=== PATIENT | female | born 1955 | race Caucasian/White ===

== ENCOUNTER 2021-10-06 12:09 | Inpatient (IN) | payer MEDICAID ==
[~2021-10-06] VITALS: Ht 149.9 cm; Wt 56.2 kg
[2021-10-06 14:19] LABS: BASOPHILS % 0.4 % (0.0-2.0); EOSINOPHILS % 0.9 % (0.0-5.0); HEMATOCRIT. 37.3 % (36.0-48.0); HEMOGLOBIN. 12.6 g/dL (12.0-16.0); LYMPHOCYTES % 12.4 % (20.0-50.0); MEAN CORPUSCULAR HEMOGLOBIN 30.5 pg (28.0-32.0); MEAN CORPUSCULAR VOLUME 90.3 fL (81.0-99.0); MEAN PLATELET VOLUME 7.7 fl (7.4-10.4); MONOCYTES % 10.6 % (2.0-8.0); NEUTROPHILS % 75.7 % (40.0-76.0); PLATELET 198 x1000/uL (130-400); RED BLOOD CELL COUNT 4.13 mill/uL (4.2-5.4); RED CELL DISTRIBUTION WIDTH 14.2 % (11.6-14.6)
[2021-10-06 14:27] LABS: CHLORIDE 103 mEq/L (98-107)
[2021-10-06 14:35] LABS: CLARITY URINE CLEAR (CLEAR); COLOR URINE DARK YELLOW (YELLOW); KETONES URINE 1+ (NEGATIVE); LEUKOCYTE ESTERASE URINE 1+ (NEGATIVE); NITRITE URINE NEGATIVE (NEGATIVE); OCCULT BLOOD URINE TRACE (NEGATIVE); PH URINE 5.5 (4.5-8.0); PROTEIN URINE 1+ (NEGATIVE); SPECIFIC GRAVITY URINE 1.019 (1.005-1.030); UROBILINOGEN URINE 0.2 E.U./dL (0.2-1.0)
[2021-10-06] MEDS ORDERED: IOHEXOL-300 100 ML BOTTLE ONE (15:52)
[2021-10-06] MEDS ORDERED: PANTOPRAZOLE SODIUM 40 MG/VIAL IV STA (16:05)
[2021-10-06] MEDS ORDERED: METRONIDAZOLE 500 MG PREMIX 100 ML IV ONE (16:45)
[2021-10-06] MEDS ORDERED: CEFTRIAXONE 1 G PREMIX 50 ML IV ONE (16:45)
[2021-10-06] MEDS ORDERED: SODIUM CHLORIDE 0.9% 1,000 ML IV ONE (16:45)
[2021-10-06] MEDS ORDERED: ACETAMINOPHEN 325MG TABLET PO ONE (17:00)
[2021-10-06] MEDS ORDERED: CLONIDINE 0.1MG TABLET PO PRN (17:45)
[2021-10-06] MEDS ORDERED: ONDANSETRON HCL 4MG/2ML INJ IV PRN (17:45)
[2021-10-06] MEDS ORDERED: ACETAMINOPHEN 325MG TABLET PO PRN (17:45)
[2021-10-06] MEDS ORDERED: MORPHINE SULFATE 2 MG/ML CPJ (NOT FOR IM USE) IV PRN (17:45)
[2021-10-06] MEDS ORDERED: HYDROCODONE/ACETAMINOPHEN 5/325MG TABLET PO PRN (17:45)
[2021-10-06] MEDS ORDERED: GUAIFENESIN 200MG/10ML SUGAR FREE UDC PO PRN (17:45)
[2021-10-06] MEDS ORDERED: NALOXONE HCL 0.4MG/ML VIAL IV PRN (18:00)
[2021-10-06] MEDS: THIAMINE HCL 100MG TABLET PO SCH (22:15)
[2021-10-07 04:00] VITALS: BP 133/57
[2021-10-07] MEDS ORDERED: GLIP5TAB12 MT (07:40)
[2021-10-07] MEDS ORDERED: METF-416 MT (07:40)
[2021-10-07 07:41] VITALS: BP 133/57
[2021-10-07 08:00] VITALS: BP 118/56
[2021-10-07 08:01] LABS: *AMPHETAMINES SCREEN URINE NEGATIVE (NEGATIVE); *BARBITURATES SCREEN URINE NEGATIVE (NEGATIVE); *BENZODIAZEPINES SCREEN URINE NEGATIVE (NEGATIVE); *COCAINE SCREEN URINE NEGATIVE (NEGATIVE); CANNABINOID URINE SCREEN NEGATIVE (NEGATIVE); METHADONE URINE SCREEN NEGATIVE (NEGATIVE); OPIATES URINE SCREEN NEGATIVE (NEGATIVE); PHENCYCLIDINE URINE SCREEN NEGATIVE (NEGATIVE)
[2021-10-07] MEDS ORDERED: *PATIENT'S OWN MEDICATION STORAGE XX SCH (08:15)
[2021-10-07] MEDS: THIAMINE HCL 100MG TABLET PO SCH (09:15)
[2021-10-07] MEDS: LISINOPRIL 10MG TABLET PO SCH (09:15)
[2021-10-07 12:00] VITALS: BP 110/56
[2021-10-07] MEDS ORDERED: DEXTROSE 50% WATER 50ML SYRINGE IV PRN (12:15)
[2021-10-07 12:36] LABS: BASOPHILS % 0.5 % (0.0-2.0); EOSINOPHILS % 1.5 % (0.0-5.0); HEMATOCRIT. 36.8 % (36.0-48.0); HEMOGLOBIN. 12.5 g/dL (12.0-16.0); LYMPHOCYTES % 11.7 % (20.0-50.0); MEAN CORPUSCULAR HEMOGLOBIN 30.8 pg (28.0-32.0); MEAN CORPUSCULAR VOLUME 90.4 fL (81.0-99.0); MEAN PLATELET VOLUME 7.8 fl (7.4-10.4); MONOCYTES % 9.3 % (2.0-8.0); PLATELET 192 x1000/uL (130-400); RED BLOOD CELL COUNT 4.07 mill/uL (4.2-5.4); RED CELL DISTRIBUTION WIDTH 14.2 % (11.6-14.6)
[2021-10-07] MEDS: INSULIN LISPRO 100 UNITS/ML SUBCUT SCH ×3 (12:39→21:17)
[2021-10-07 12:45] LABS: CHLORIDE 104 mEq/L (98-107)
[2021-10-07] MEDS ORDERED: ONDANSETRON HCL 4MG/2ML INJ IV PRN (15:30)
[2021-10-07 16:00] VITALS: BP 102/54
[2021-10-07] MEDS: METRONIDAZOLE 500 MG PREMIX 100 ML IV SCH (16:36)
[2021-10-07] MEDS: BLOOD SUGAR DIAGNOSTIC STRIP TEST SCH ×2 (16:41→21:16)
[2021-10-07 16:51] LABS: BASOPHILS % 0.6 % (0.0-2.0); EOSINOPHILS % 1.7 % (0.0-5.0); HEMATOCRIT. 35.5 % (36.0-48.0); HEMOGLOBIN. 11.9 g/dL (12.0-16.0); LYMPHOCYTES % 12.3 % (20.0-50.0); MEAN CORPUSCULAR HEMOGLOBIN 30.8 pg (28.0-32.0); MEAN CORPUSCULAR VOLUME 91.6 fL (81.0-99.0); MEAN PLATELET VOLUME 8.2 fl (7.4-10.4); MONOCYTES % 9.4 % (2.0-8.0); PLATELET 195 x1000/uL (130-400); RED BLOOD CELL COUNT 3.87 mill/uL (4.2-5.4); RED CELL DISTRIBUTION WIDTH 13.9 % (11.6-14.6)
[2021-10-07 17:00] LABS: CHLORIDE 105 mEq/L (98-107)
[2021-10-07] MEDS ORDERED: CEFTRIAXONE 1,000 MG in DEXTROSE 5% WATER 50 ML IV SCH (17:00)
[2021-10-07 20:00] VITALS: BP 97/52
[2021-10-08] VITALS: BP 111/54
[2021-10-08 04:00] VITALS: BP 97/51
[2021-10-08] MEDS: METRONIDAZOLE 500 MG PREMIX 100 ML IV SCH ×2 (04:31→12:17)
[2021-10-08] MEDS: BLOOD SUGAR DIAGNOSTIC STRIP TEST SCH ×2 (07:10→12:10)
[2021-10-08 08:00] VITALS: BP 105/62
[2021-10-08] MEDS: THIAMINE HCL 100MG TABLET PO SCH (08:27)
[2021-10-08] MEDS: LISINOPRIL 10MG TABLET PO SCH (08:28)
[2021-10-08] MEDS: INSULIN LISPRO 100 UNITS/ML SUBCUT SCH ×2 (08:34→12:40)
[2021-10-08] MEDS ORDERED: PANTOPRAZOLE SODIUM 40 MG/VIAL IV SCH (09:00)
[2021-10-08 16:51] VITALS: BP 111/65
== END 2021-10-08 17:15 | disposition home or self-care (01) | DRG 249 ==
LOC: ER 12:09 → 8WST 16:54 → CANRESERV 20:22 → ENRESERV 20:22 → CANRESERV 10-07 01:59 → ER 10-07 08:02 → CANBEDREQ 10-07 08:07 → 8WST 10-07 09:04
PROVIDERS: ADMIT Internal Medicine Nephrology; ATTEND Internal Medicine Nephrology
DX: K52.9 Noninfective gastroenteritis and colitis, unspecified (principal); K92.2 Gastrointestinal hemorrhage, unspecified; D64.9 Anemia, unspecified; E11.9 Type 2 diabetes mellitus without complications; E78.00 Pure hypercholesterolemia, unspecified; E78.5 Hyperlipidemia, unspecified; M54.30 Sciatica, unspecified side
CPT/HCPCS: 36415; 74177; 80048; 80053; 80305; 81003; 82962; 83735; 85025; 99291; C9113; J0696; J1815; J3490; J7030; J7060; Q9967